=== PATIENT | female | born 1970 | race Caucasian/White ===

== ENCOUNTER 2017-03-06 06:55 | Emergency (ER) | payer SELFPAY ==
[2017-03-06 07:19] VITALS: BP 149/93; PULSE 109; TEMP 98.2; BMI 39.4
--- NOTE | 2017-03-06 07:36 | PDOC ---
History of Present Illness - General Chief Complaint: Pain Stated Complaint: RT KNEE PAIN Time Seen by Provider: 03/06/17 07:12 History Source: Patient Exam Limitations: No Limitations - History of Present Illness Initial Comments: 03/06/17 07:30 47 yr female with history of right knee injury 12yrs ago states she saw an orthopedist at that time told she had a torn meniscus. Pt states the past year the pain has been acting up and swollen at times. Pt states she does not have insurance so she has not seen a doctor until todays ER visit. Pt has history of depression and anxiety. Allergy to toradol. Pt taking motrin and percocet with no relief. 03/06/17 07:32 Severity: Yes: mild Lower Ext. Injury Location - Specific Injury Location Knees: right pain (medially tender to touch, FROM nv intact no crepitus ) Past History - Past Medical History Allergies/Adverse Reactions: Allergies Allergy/AdvReac Type Severity Reaction Status Date / Time ketorolac tromethamine Allergy Difficulty Verified 03/06/17 07:07 [From Toradol] Breathing Home Medications: Ambulatory Orders Clonazepam [KlonoPIN] 0.5 mg PO HS 03/06/17 Escitalopram Oxalate [Lexapro -] 10 mg PO DAILY 03/06/17 Prednisone [Deltasone -] 40 mg PO DAILY #10 tablet 03/06/17 Psychiatric Problems: Yes (DEPRESSION, ANXIETY) - Surgical History Cholecystectomy: Yes - Psycho/Social/Smoking Cessation Hx Anxiety: Yes Suicidal Ideation: No Smoking History: Never smoked Hx Alcohol Use: Yes (social) Drug/Substance Use Hx: No Substance Use Type: None Review of Systems - Review of Systems Able to Perform ROS?: Yes Is the patient limited Sen[place]e proficient: No Constitutional: No: Symptoms Reported HEENTM: No: Symptoms Reported Respiratory: No: Symptoms reported Cardiac (ROS): No: Symptoms Reported ABD/GI: No: Symptoms Reported : No: Symptoms Reported Musculoskeletal: Yes: Symptoms Reported *Physical Exam - Vital Signs Last Vital Signs Temp Pulse Resp BP Pulse Ox 98.2 F 109 H 20 149/93 97 03/06/17 07:03 03/06/17 07:03 03/06/17 07:03 03/06/17 07:03 03/06/17 07:03 - Physical Exam General Appearance: Yes: Nourished, Appropriately Dressed HEENT: positive: EOMI, MIGUELINA Respiratory/Chest: positive: Lungs Clear, Normal Breath Sounds Cardiovascular: positive: Regular Rhythm, Regular Rate Musculoskeletal: positive: Normal Inspection Extremity: positive: Normal Capillary Refill, Normal Inspection, Normal Range of Motion, Tender (medially right knee ). negative: Swelling, Calf Tenderness, Erythema, Inflammation Integumentary: positive: Normal Color, Dry, Warm Neurologic: positive: Fully Oriented, Alert, Normal Mood/Affect, Normal Response , Motor Strength 03/01 ED Treatment Course - RADIOLOGY Radiology Studies Ordered: Category Date Time Status KNEE 3 POS-RIGHT [RAD] Stat Radiology 03/06/17 07:29 Ordered Medical Decision Making - Medical Decision Making 03/06/17 07:34 cc: right knee pain no recent trauma FROM nv intact no calf pain or swelling will get xray place immobilizer and refer to orthopedist. pt agrees with plan and understands the need for follow up with orthopedist 03/06/17 07:36 will give prednisone as pt has allergy to toradol unsure if allergy to naprosyn (pt never took) states hives and diff breathing after toradol. 03/06/17 07:48 *DC/Admit/Observation/Transfer Diagnosis at time of Disposition: Knee pain, right Qualifiers: Chronicity: acute Qualified Code(s): M25.561 - Pain in right knee - Prescriptions Prescriptions: Prednisone [Deltasone -] 40 mg PO DAILY #10 tablet - Referrals Referrals: Abhijit Pittman MD [Primary Care Provider] - Henrique Rubio MD [Staff Physician] - - Patient Instructions Additional Instructions: please follow with the orthopedist for continued care use the knee immobilizer while awake remove to sleep and bathe apply warm compresses to the are of pain every 3hrs for 20 minutes take prednisone as directed for swelling and inflamation, you can also try an over the counter topical rubbing cream such as bio freeze or Aspercreame
== END 2017-03-06 09:00 | disposition home or self-care (01) ==
LOC: JER 06:55
PROC: 2W3QX1Z Immobilization of Right Lower Leg using Splint (ICD-10-PCS; principal; 2017-03-06)
DX: M25.561 Pain in right knee (principal)
CPT/HCPCS: 73562-TC-RT; 99282-25